=== PATIENT | female | born 1965 | race Caucasian/White ===

== ENCOUNTER → 2016-06-05 | Day surgery (SDC) | payer BC ==
[~2016-06-05] MED LIST: ALBUTEROL17 GM INH; CALCIUM +D & M1 EAC1 PO; IBUPROFEN PO; IBUPROFEN600 MG PO; IRON SUPPLEMENT1 TAB PO; LORTAB 5/500 TA1 TA2 PO; TYLENOL #3 PO
--- NOTE | ~2016-06-05 | OR ---
Unit #: [id number] #: [id number] Patient: SCOTT RESTREPO [id number] [address] [place], [place] [address] [id number] O MR#: [id number] NAME: SCOTT RESTREPO ROOM: Date of Procedure: 06/05/2016 Admission Date: 06/05/2016 Surgeon: Michele Mendes M.D. : 1965 Attending Physician: Michele Mendes M.D. Primary Care Physician: Primary Care Physician No OPERATIVE REPORT PREOPERATIVE DIAGNOSIS Enlarging sebaceous cyst of back. POSTOPERATIVE DIAGNOSIS Enlarging sebaceous cyst of back. PROCEDURE PERFORMED Excision of enlarging sebaceous cyst of back, 2 x 2 cm with layered closure. ANESTHESIA Versed 3 mg, Demerol 50 mg each IV push in divided dosages with continuous cardiac and O2 saturation monitoring, 1% Xylocaine plain local anesthesia. FINDINGS The area was excised completely and sent to pathology. SPECIMENS Sent to pathology. COMPLICATIONS None apparent. CONDITION The patient tolerated the procedure well. INDICATIONS FOR PROCEDURE The patient is a 51-year-old white female, who presents at this time with enlarging painful sebaceous cyst of her back. She presents at this time for excision for pathologic diagnosis and treatment. DESCRIPTION OF PROCEDURE After obtaining informed consent as well as receiving preoperative antibiotics, the patient was brought to the operating room and after being placed in left lateral decubitus position with all areas carefully padded and all extremities manipulated carefully. She received adequate IV sedation, then had her back prepped and draped in a sterile fashion. The area was anesthetized with 1% Xylocaine plain local anesthesia. An elliptical incision was made transversely with a knife excising the overlying skin and taken down through the subcutaneous tissues around the area of the sebaceous cyst circumferentially. The lesion was excised with electrocautery with good hemostasis. The wound was irrigated and Unit #: [id number] #: [id number] Patient: SCOTT RESTREPO hemostasis was obtained with the Bovie. The deep tissues were reapproximated with interrupted 3-0 Vicryl sutures and the skin was closed with 4-0 Vicryl subcuticular stitch. Benzoin and Steri-Strips were applied over the wound in an occlusive manner followed by a dry dressing and a Tegaderm dressing. Needle counts, sponge counts, and instrument counts were all correct as reported by the scrub nurse x2. The patient went from the operating room to the recovery room in stable condition. Dictated by... Rosales Booth/linda TD: 06/05/2016 08:27 JOB #: [id number] CC: [facility] Napoleon Menjivar M.D. OPERATIVE REPORT X Michele Mendes MD X PROCEDURE OPERATIVE NOTE
== END | disposition home or self-care (01) ==
LOC: CSUR 05:32
DX: L72.0 Epidermal cyst (principal); J45.909 Unspecified asthma, uncomplicated; G25.81 Restless legs syndrome; F41.8 Other specified anxiety disorders; Z87.891 Personal history of nicotine dependence; Z88.5 Allergy status to narcotic agent; Z98.890 Other specified postprocedural states
CPT/HCPCS: 88304; J2175; J2250